=== PATIENT | male | born 1990 | race Caucasian/White ===

== ENCOUNTER 2022-01-10 07:51 | Emergency (ER) | payer MEDICAID ==
[~2022-01-10] VITALS: Ht 175.3 cm; Wt 82.0 kg
[~2022-01-10 07:51] MED LIST: AZIT250T12 MT; OFLO5DRO4 LEFT EAR; TOPUD PO
[2022-01-10 08:00] VITALS: BP 121/67
[2022-01-10] MEDS ORDERED: VISCOUS LIDOCAINE 2% 15 ML UDC PO STA (08:41)
[2022-01-10] MEDS ORDERED: ACETAMINOPHEN 325MG TABLET PO STA (08:41)
[2022-01-10] MEDS ORDERED: MAGNESIUM/ALUMINUM HYDROXIDE/SIMETHICONE 30ML UDC PO STA (08:41)
[2022-01-10] MEDS ORDERED: FAMOTIDINE 20MG TABLET PO ONE (08:45)
[2022-01-10 09:43] LABS: CLARITY URINE CLEAR (CLEAR); COLOR URINE YELLOW (YELLOW); KETONES URINE NEGATIVE (NEGATIVE); LEUKOCYTE ESTERASE URINE NEGATIVE (NEGATIVE); NITRITE URINE NEGATIVE (NEGATIVE); OCCULT BLOOD URINE NEGATIVE (NEGATIVE); PROTEIN URINE NEGATIVE (NEGATIVE); SPECIFIC GRAVITY URINE 1.016 (1.005-1.030); UROBILINOGEN URINE 0.2 E.U./dL (0.2-1.0)
[2022-01-10 10:17] LABS: BASOPHILS % 0.6 % (0.0-2.0); EOSINOPHILS % 0.8 % (0.0-5.0); HEMATOCRIT. 43.2 % (42.0-52.0); HEMOGLOBIN. 14.9 g/dL (14.0-18.0); LYMPHOCYTES % 19.7 % (20.0-50.0); MEAN CORPUSCULAR HEMOGLOBIN 29.3 pg (28.0-32.0); MEAN CORPUSCULAR VOLUME 85.3 fL (80.0-94.0); MEAN PLATELET VOLUME 7.9 fl (7.4-10.4); NEUTROPHILS % 67.9 % (40.0-76.0); PLATELET 240 x1000/uL (130-400); RED BLOOD CELL COUNT 5.07 mill/uL (4.7-6.1); RED CELL DISTRIBUTION WIDTH 12.6 % (11.6-14.6)
[2022-01-10 10:26] LABS: CHLORIDE 107 mEq/L (98-107)
[2022-01-10] MEDS ORDERED: FAMO-135 PO (11:26)
== END 2022-01-10 12:00 | disposition home or self-care (01) ==
LOC: ER 09:31
DX: R10.84 Generalized abdominal pain (principal); R11.10 Vomiting, unspecified; R19.7 Diarrhea, unspecified; E78.00 Pure hypercholesterolemia, unspecified; Z88.0 Allergy status to penicillin
CPT/HCPCS: 36415; 74176; 80053; 81003; 85025; 99284